=== PATIENT | male | born 1975 | race Caucasian/White ===

== ENCOUNTER 2019-02-23 08:44 | Emergency (ER) | payer MEDICAID, OTHER ==
[~2019-02-23 08:44] MED LIST: ACHD5005 PO; HC2.5C30 TOP; ONDA4TAB11 PO
--- OUTSIDE RECORDS SUMMARY | 2019-02-23 08:50 | XMS REPORT | Continuity of Care Document ---
Author Author [facility] Organization [facility] Address Unknown Phone Unavailable Allergies Active Description Code Type Severity Reaction Onset Reported/Identified Relationship to Patient Clinical Status Yes daljit [id number] Drug Allergy Moderate FEVER, GI 06/27/2011 Medications There is no data. 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 Results There is no data. Encounters ACCT No. Visit Date/Time Discharge Status Pt. Type Provider Facility Loc./Unit Complaint [id number] 04/30/2016 08:09:00 04/30/2016 09:07:00 DIS Outpatient CARLINE GARCIA MD [facility] CARD [id number] 03/19/2016 09:38:00 03/19/2016 10:46:00 DIS Outpatient CARLINE GARCIA MD [facility] CARD [id number] 06/29/2011 07:04:00 Document Registration [id number] 06/27/2011 18:25:00 Document Registration
--- NOTE | 2019-02-23 09:20 | NUR ---
ANGI FROM [facility] PT WENT TO [place] TO SEEK CARE.
== END 2019-02-23 09:20 | disposition left against medical advice (07) ==
LOC: EDUNIT# 08:44 → ER 08:47
DX: K62.5 Hemorrhage of anus and rectum (principal); R19.7 Diarrhea, unspecified